=== PATIENT | male | born 1940 | race Caucasian/White ===

== ENCOUNTER 2018-10-28 09:26 | Inpatient (IN) | payer MEDICARE | END 2018-10-31 18:23 | LOC: EDH 09:26 → EDHIP 14:33 → 4CH 17:27 | DX: R41.0 Disorientation, unspecified (principal); J18.9 Pneumonia, unspecified organism; R33.9 Retention of urine, unspecified; G20 Parkinson's disease; I10 Essential (primary) hypertension ==

== ENCOUNTER 2018-11-02 00:46 | Emergency (ER) | payer MEDICARE ==
[~2018-11-02 00:46] MED LIST: ASPI-555 PO; CARB-39 PO; CARB1TAB42 PO; DEXL60CA3 PO; DONE10TA43 PO; KRIL1CAP19 PO; LOSA50TA64 PO; MELA10TA2 PO; NAPR220T57 PO; QUET25TA PO
[2018-11-02 01:19] LABS: BASOPHILS % (AUTO) 0.4 % (0.0-5.0); EOSINOPHILS % (AUTO) 5.3 % (0.0-8.0); HEMATOCRIT 41.9 % (42-54); LYMPHOCYTES % (AUTO) 10.6 % (21.0-51.0); MEAN CORPUSCULAR HEMOGLOBIN 32.3 pg (27.0-33.0); MEAN CORPUSCULAR HGB CONC 34.7 g/dL (32.0-36.0); MEAN CORPUSCULAR VOLUME 93.3 fL (79-99); MONOCYTES % (AUTO) 9.7 % (3.0-13.0); NUCLEATED RED BLOOD CELLS 0.1 % (0.0-0.19); PLATELET COUNT (AUTO) 216 K/uL (130-400); RED BLOOD CELL COUNT(AUTO) 4.49 MIL/uL (4.50-6.20); RED CELL DISTRIBUTION WIDTH 13.5 % (11.0-15.5); WHITE BLOOD COUNT (AUTO) 6.7 K/uL (4.8-10.8)
[2018-11-02 01:58] LABS: CREATININE 0.9 mg/dL (0.5-1.5); POTASSIUM 3.7 mmol/L (3.5-5.1)
== END 2018-11-02 03:47 | disposition home or self-care (01) ==
LOC: EDH 00:46
DX: S00.03XA Contusion of scalp, initial encounter (principal); F03.90 Unspecified dementia, unspecified severity, without behavioral disturbance, psychotic disturbance, mood disturbance, and anxiety; G20 Parkinson's disease; F02.80 Dementia in other diseases classified elsewhere, unspecified severity, without behavioral disturbance, psychotic disturbance, mood disturbance, and anxiety; E78.5 Hyperlipidemia, unspecified; Z90.49 Acquired absence of other specified parts of digestive tract; Z98.890 Other specified postprocedural states; Z88.8 Allergy status to other drugs, medicaments and biological substances; W18.39XA Other fall on same level, initial encounter; Y93.89 Activity, other specified; Y92.128 Other place in nursing home as the place of occurrence of the external cause; Y99.8 Other external cause status
CPT/HCPCS: 36415; 70450; 71045; 72125; 72170; 80048; 85025; 93005

== ENCOUNTER 2018-11-02 19:39 | Inpatient (IN) | payer MEDICARE ==
[~2018-11-02] VITALS: Ht 167.6 cm; Wt 85.5 kg
[2018-11-03] VITALS (27 sets, daily range): BP systolic 82–142; BP diastolic 40–85
[2018-11-03] MEDS ORDERED: LEVOFLOXACIN 500 MG TABLET ONE (00:22)
[2018-11-03] MEDS ORDERED: SODIUM CHLORIDE 0.9% 1000ML 1,000 ML IV ONE ×2 (02:22→10:18)
[2018-11-03] MEDS ORDERED: ACETAMINOPHEN 325 MG TAB ONE (02:35)
[2018-11-03 03:01] LABS: BILIRUBIN,URINE Negative (NEGATIVE); GLUCOSE, URINE (UA) Negative (NEGATIVE); KETONES,URINE Negative (NEGATIVE); LEUKOCYTE ESTERASE ,URINE Trace (NEGATIVE); NITRATE,URINE Negative (NEGATIVE); OCCULT BLOOD,URINE Large (NEGATIVE); PH,URINE 7.5 (5.0-8.0); PROTEIN,URINE >=1000 (NEGATIVE); UROBILINOGEN,URINE 0.2 mg/dL (0.2-1.0)
[2018-11-03 03:02] LABS: APPEARANCE,URINE BLOODY (CLEAR); COLOR,URINE RED (YELLOW)
[2018-11-03 03:14] LABS: BACTERIA,URINE Moderate /HPF (None Seen); MUCUS,URINE None Seen LPF (None Seen); RBC,URINE TNTC /HPF (0-1); SQUAMOUS EPITHELIAL CELL,UR None Seen /HPF (0-2)
[2018-11-03 04:22] LABS: BASOPHILS % (AUTO) 0.1 % (0.0-5.0); EOSINOPHILS % (AUTO) 0.8 % (0.0-8.0); HEMATOCRIT 39.1 % (42-54); LYMPHOCYTES % (AUTO) 4.7 % (21.0-51.0); MEAN CORPUSCULAR HEMOGLOBIN 31.7 pg (27.0-33.0); MEAN CORPUSCULAR HGB CONC 34.4 g/dL (32.0-36.0); MEAN CORPUSCULAR VOLUME 92.4 fL (79-99); MONOCYTES % (AUTO) 8.3 % (3.0-13.0); NEUTROPHILS % (AUTO) 86.1 % (40.0-77.0); PLATELET COUNT (AUTO) 233 K/uL (130-400); RED BLOOD CELL COUNT(AUTO) 4.23 MIL/uL (4.50-6.20); RED CELL DISTRIBUTION WIDTH 13.2 % (11.0-15.5); WHITE BLOOD COUNT (AUTO) 13.1 K/uL (4.8-10.8)
[2018-11-03 04:37] LABS: CREATININE 0.9 mg/dL (0.5-1.5); POTASSIUM 3.7 mmol/L (3.5-5.1)
[2018-11-03 04:42] LABS: ALBUMIN 3.2 g/dL (3.5-5.0); BILIRUBIN,TOTAL 1.2 mg/dL (0.2-1.0)
[2018-11-03] MEDS: SODIUM CHLORIDE 0.9% 1000ML 1,000 ML IV SCH ×2 (08:46→21:45)
[2018-11-03] MEDS ORDERED: NON-FORMULARY MEDICATION 1 EACH (Dexlansoprazole (Dexilant) 60 MG) PO PRN (09:00)
[2018-11-03] MEDS ORDERED: FAMOTIDINE/PF 20 MG/2 ML VIAL IV SCH (09:00)
[2018-11-03] MEDS ORDERED: MORPHINE SULFATE 2 MG/ML 1ML SYG IV PRN (09:00)
[2018-11-03] MEDS: MEROPENEM 1 GM VIAL IVP SCH (10:00)
[2018-11-03] MEDS ORDERED: FAMOTIDINE/PF 20 MG/2 ML VIAL IV ONE (10:18)
[2018-11-03 10:42] LABS: HEMATOCRIT 40.5 % (42-54)
[2018-11-03] MEDS ORDERED: MORPHINE SULFATE 2 MG/ML 1ML SYG ONE (11:56)
[2018-11-03] MEDS ORDERED: LOSARTAN 50 MG TABLET ONE (11:56)
[2018-11-03] MEDS: LOSARTAN 50 MG TABLET PO SCH (12:00)
[2018-11-03] MEDS: CARBIDOPA PO SCH ×2 (13:00→21:00)
[2018-11-03] MEDS: LEVODOPA PO SCH ×2 (13:00→21:00)
--- NOTE | 2018-11-03 19:30 | NUR ---
Patient laying in bed. Morales catheter in place. Draining bright red blood, unable to flush by day nurse. Patient speech is garbled incomprehensible. Unable to answer name, , or place. Dr Barrientos at bedside. Removed morales. Attempted to insert a morales catheter x2. Unsuccessful attempt. Orders for cystoscopy placed STAT. Consent signed by .
[2018-11-03] MEDS ORDERED: GENTAMICIN 80 MG/NS 100 ML PB 100 ML IV ONE (20:26)
[2018-11-03] MEDS ORDERED: DEXAMETHASONE SOD PHOSPHATE 10MG/ML 1ML VIAL ONE (20:34)
[2018-11-03] MEDS ORDERED: LIDOCAINE PF 2% 5ML ABBOJECT ONE (20:34)
[2018-11-03] MEDS ORDERED: MIDAZOLAM HCL 1 MG/ML 2ML VIAL ONE (20:34)
[2018-11-03] MEDS ORDERED: ONDANSETRON HCL 4 MG/2 ML VIAL ONE (20:35)
[2018-11-03] MEDS ORDERED: PROPOFOL 10 MG/ML 20ML VIAL IV ONE (20:35)
[2018-11-03] MEDS ORDERED: FENTANYL CITRATE PF 50 MCG/1 ML 2ML VIAL ONE (20:35)
[2018-11-03] MEDS: DONEPEZIL HCL 5 MG TAB PO SCH (21:00)
[2018-11-03] MEDS ORDERED: CARBIDOPA/LEVODOPA ER 50-200 1 EACH TABLET.ER PO SCH (21:00)
[2018-11-03] MEDS: QUETIAPINE FUMARATE 25 MG TAB PO SCH (21:00)
[2018-11-03] MEDS ORDERED: EPHEDRINE SULFATE 50 MG/ML AMPULE ONE (21:21)
--- NOTE | 2018-11-03 23:00 | NUR ---
Patient returned from procedure. [address]F [address] catheter in place with continuos bladder irrigation. Bladder non distended. Morales draining pale yellow urine. Orders to stop CBI in am. NS running. IV patent, running smoothly. Patient awake and alert.
[2018-11-04] VITALS (11 sets, daily range): BP systolic 101–141; BP diastolic 53–83
[2018-11-04] MEDS: MEROPENEM 1 GM VIAL IVP SCH ×3 (02:06→21:21)
[2018-11-04 04:29] LABS: HEMATOCRIT 34.5 % (42-54); MEAN CORPUSCULAR HEMOGLOBIN 31.3 pg (27.0-33.0); MEAN CORPUSCULAR HGB CONC 33.3 g/dL (32.0-36.0); MEAN CORPUSCULAR VOLUME 94.1 fL (79-99); PLATELET COUNT (AUTO) 268 K/uL (130-400); RED BLOOD CELL COUNT(AUTO) 3.67 MIL/uL (4.50-6.20); RED CELL DISTRIBUTION WIDTH 13.5 % (11.0-15.5); WHITE BLOOD COUNT (AUTO) 24.5 K/uL (4.8-10.8)
[2018-11-04 04:36] LABS: INR 1.07 (0.85-1.15); PROTHROMBIN TIME 11.2 SEC (9.6-11.6)
[2018-11-04 04:42] LABS: BILIRUBIN,TOTAL 0.9 mg/dL (0.2-1.0); CREATININE 1.1 mg/dL (0.5-1.5); POTASSIUM 4.5 mmol/L (3.5-5.1); TOTAL PROTEIN, SERUM 6.6 g/dL (6.0-8.3)
--- NOTE | 2018-11-04 06:30 | NUR ---
Bloody discharge from penis. CBI, stopped.
[2018-11-04] MEDS: FAMOTIDINE/PF 20 MG/2 ML VIAL IV SCH (08:41)
--- NOTE | 2018-11-04 08:45 | NUR ---
AM ASSESSMENT PT LAYING IN BED, HOB ELEVATED 30 DEGREES, RESTING. RESPONDS TO NAME ONLY. CONFUSED PHRASES. HX OF DEMENTIA. NO SOB. NO DISTRESS NOTED. O2 NC @ 2L. NO N/V AND/OR DIARRHEA. NPO STATUS. 0.9% NACL INFUSING @ 70 ML/HR. [address] PATENT & DRAINING. CBI DC'D THIS MORNING. BEDREST. SIDE RAILS UP X 4. BED FALL ALARM ON. CALL HERNAN W/IN REACH.
[2018-11-04] MEDS: EPA PO SCH (09:00)
[2018-11-04] MEDS: KRILL PO SCH (09:00)
[2018-11-04] MEDS: [UNRECOGNIZED DRUG - OTHER] PO SCH (09:00)
[2018-11-04] MEDS: PHOSPHO PO SCH (09:00)
[2018-11-04] MEDS: DHA PO SCH (09:00)
[2018-11-04] MEDS: AST PO SCH (09:00)
[2018-11-04] MEDS: LOSARTAN 50 MG TABLET PO SCH (12:00)
--- NOTE | 2018-11-04 12:51 | NUR ---
EVALUATION NOT COMPLETED SECONDARY TO Pt'S POOR ALERTNESS. LOBBY CONCIERGE PROVIDED VERBAL AND TACTILE CUES TO AROUSE Pt. Pt WITH EYES OPEN AND FIXED TO CEILING. Pt DID NOT RESPOND TO NAME OR TACTILE CUES. Pt DID NOT FOLLOW COMMANDS. LOBBY CONCIERGE PROVIDED TACTILE CUES TO MOUTH WITH SPOON TO ATTEMPT EVALUATION. PT DID NOT PARTICIPATE. NURSE RYAN NOTIFIED OF Pt'S POOR PARTICIPATION. NO FOOD OR LIQUIDS WERE PROVIDED AT THIS TIME. RECOMMEND NPO UNTIL BEDSIDE EVALUATION Pt IS AT HIGH RISK FOR ASPIRATION. WAS NOT AT BEDSIDE AT THE TIME OF THE EVALUATION. LOBBY CONCIERGE WILL CONTINUE TO FOLLOW Pt. Addendum: 11/04/18 at 1254 by PARAG ORTIZ [facility] Amended: Links added.
[2018-11-04] MEDS ORDERED: CARBIDOPA-LEVODOPA 25-100 TAB NG SCH (13:33)
[2018-11-04] MEDS: ROPINIROLE HCL 0.25 MG TABLET NG SCH ×2 (14:12→21:21)
--- NOTE | 2018-11-04 14:30 | NUR ---
ND TUBE INSERTION 14 FR NG TUBE INSERTED RT NARE. NO RESISTANCE @ INSERTION. PLACEMENT VERIFIED, AIR BOLUS. NG TUBE TAPED. MEDS @ GIVEN @ THIS TIME. NG TUBE CLAMPED.
[2018-11-04] MEDS: CARBIDOPA-LEVODOPA 25-100 TAB NG SCH ×2 (14:43→17:37)
--- NOTE | 2018-11-04 15:42 | NUR ---
DC Plan Discussed dcp with patient's Sharmin. Patient currently out of room for radiology exam. states patient comes from [facility] in [place], but looking for [facility] bed placement and would prefer to [place]. Patient currently w/ a NGT. CM to discuss plan w/ PMD. CD Addendum: 11/04/18 at 1544 by BERTA MALONEY CM Amended: Links added.
--- NOTE | 2018-11-04 17:33 | NUR ---
TRANSFER REPORT GIVEN SHELDON SANTA RN.
--- NOTE | 2018-11-04 17:45 | NUR ---
ASSUMED CARE AFTER RECEIVING REPORT AND PATIENT TRANSFERRED TO ROOM 420, ALERT X 1 , IV INFUSING VIA 24 G IN RIGHT HAND , LOBATO 3 WAY 16 FR DRAINING CLEAR URINE, NG TUBE ( INSERTED FOR MEDICATIONS0 SERCURED AND TAPED TO NOSE PLACEMENT CHECK, O2 @ 2 LITER NC INFUSING . FAMILY AT BEDSIDE.
--- NOTE | 2018-11-04 17:50 | NUR ---
TRANSFER PT TRANSFERRED TO RM 420 VIA BED. @ BEDSIDE. TELE MARSHALL REMOVED EARLIER. TOLERATED TRANSFER WELL. NO DISTRESS NOTED.
[2018-11-04] MEDS: ACETAMINOPHEN 325 MG TAB PO PRN (18:27)
[2018-11-04] MEDS: DONEPEZIL HCL 5 MG TAB PO SCH (20:15)
[2018-11-04] MEDS: SODIUM CHLORIDE 0.9% 1000ML 1,000 ML IV SCH ×2 (20:16→22:46)
[2018-11-04] MEDS: QUETIAPINE FUMARATE 25 MG TAB PO SCH (20:16)
--- NOTE | 2018-11-04 22:30 | NUR ---
ngt ngt pulled by patient, restart ngt via right nare with 14 panamanian catheter , positive with placement in the stomach by 2 nurses, adarsh garcia r.n and shazia oates,apply mittens to patient to avoid pulling ngt,
[2018-11-05] MEDS: CARBIDOPA-LEVODOPA 25-100 TAB NG SCH ×4 (00:38→19:47)
[2018-11-05 03:31] VITALS: BP 113/72
[2018-11-05 04:21] LABS: HEMATOCRIT 28.9 % (42-54); MEAN CORPUSCULAR HGB CONC 34.1 g/dL (32.0-36.0); MEAN CORPUSCULAR VOLUME 93.9 fL (79-99); PLATELET COUNT (AUTO) 184 K/uL (130-400); RED BLOOD CELL COUNT(AUTO) 3.07 MIL/uL (4.50-6.20); RED CELL DISTRIBUTION WIDTH 13.6 % (11.0-15.5); WHITE BLOOD COUNT (AUTO) 12.8 K/uL (4.8-10.8)
[2018-11-05 04:32] LABS: CREATININE 0.9 mg/dL (0.5-1.5); PHOSPHORUS 2.4 mg/dL (2.5-4.9); POTASSIUM 3.9 mmol/L (3.5-5.1)
[2018-11-05] MEDS: ROPINIROLE HCL 0.25 MG TABLET NG SCH ×3 (05:30→20:59)
[2018-11-05] MEDS: MEROPENEM 1 GM VIAL IVP SCH ×3 (05:30→20:59)
[2018-11-05 07:41] VITALS: BP 147/79
[2018-11-05] MEDS: KRILL PO SCH (09:00)
[2018-11-05] MEDS: DHA PO SCH (09:00)
[2018-11-05] MEDS: PHOSPHO PO SCH (09:00)
[2018-11-05] MEDS: EPA PO SCH (09:00)
[2018-11-05] MEDS: AST PO SCH (09:00)
[2018-11-05] MEDS: [UNRECOGNIZED DRUG - OTHER] PO SCH (09:00)
[2018-11-05] MEDS: FAMOTIDINE/PF 20 MG/2 ML VIAL IV SCH (09:40)
--- NOTE | 2018-11-05 11:22 | NUR ---
DYSPHAGIA EVAL COMPLETED. +S/S OF ASPIRATION WITH THIN LIQUIDS. RECOMMEND REGULAR SOLIDS, NECTAR-THICK LIQUIDS; PILLS WHOLE WITH LIQUIDS. REFUSED BY Pt AND . PATIENT INFORMATION: Pt IS A 77 YEAR OLD MALE REFERRED FOR A BEDSIDE DYSPHAGIA EVAL SECONDARY TO DYSPHAGIA. Pt WITH AT BEDSIDE AT THIS TIME. REPORTS Pt HAS A HISTORY OF DYSPHAGIA AND DOES NOT LIKE THE THICKENER; HE DOES NOT THICKEN LIQUIDS IN THE HOME. PT WITH NG TUBE IN PLACE AT THE TIME OF THE EVALUATION. Pt CURRENTLY ADMITTED SECONDARY TO METABOLIC ENCEPHALOPATHY, TRAUMATIC HEMATURIA, AND SEPSIS. 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 EVALUATION: MODERATE PHARYNGEAL DYSPHAGIA CAUSED BY DECREASED TONGUE BASE RETRACTION, DELAYED PHARYNGEAL RESPONSE TIME, DECREASED LARYNGEAL ELEVATION/EXCURSION, EVIDENCED BY MULTIPLE SWALLOWS AND +S/S OF ASPIRATION OF SUPER COUGH RESPONSE WITH THIN LIQUIDS. NO S/S OF ASPIRATION NOTED WITH NECTAR-THICK LIQUIDS. RECOMMENDATIONS: 1. REGULAR SOLIDS, NECTAR-THICK LIQUIDS; PILLS WHOLE WITH LIQUIDS. 2. COMPENSATORY STRATEGIES: *SEATED AT 90 DEGREES *SLOW RATE *SMALL BITES AND SIPS GEAR LAPPER EDUCATED Pt AND ON RISKS AND CONSEQUENCES OF ASPIRATION INCLUDING: ASPIRATION PNEUMONIA, DRUG RESISTANT PNEUMONIA AND POTENTIALLY COMPLICATIONS THAT CAN BE FATAL. THEY VERBALIZED UNDERSTANDING ON RISKS AND VERBALIZED THAT THEY DID NOT WANT TO USE THE THICKENER. NURSE SHELDON WAS NOTIFIED. REFUSAL OF CARE FILLED OUT AND SIGNED BY . G-CODES SWALLOWING. [id number] Addendum: 11/05/18 at 1126 by PARAG ORTIZ [facility] Amended: Links added.
[2018-11-05 11:29] VITALS: BP 152/76
[2018-11-05] MEDS: LOSARTAN 50 MG TABLET PO SCH (12:46)
--- NOTE | 2018-11-05 12:53 | NUR ---
RD Notification Patient with metabolic encephalopathy and accidental removal of Peña Cath. RD Notification for Tube Feed Recommendations. Tube Feeding recommendations placed in patient chart. Patient seen by GEOSPATIAL DEVELOPER this AM and Rec Regular diet with [place]-thick liquids, however nectar thickened liquids refused by Patient and as per EMR. Patient diet advanced to Regular. Patient LBM 11/03/18. Healthy BMI for age. Patient monitored labs: BUN 24, Glu 119, Ca 8.4, P 2.4, Alb 3.0. RD to continue to monitor. Please notify RD as nutritional concerns arise. Thank you. Addendum: 11/05/18 at [address] Amended: Links added.
--- NOTE | 2018-11-05 13:14 | NUR ---
DR DO IN TO SEE PATIENT REINSTATED THAT LOBATO WAS TO STAY IN PLACE FOR 7 DAYS FROM INSERTION ( INSERTED ON 11/03/18) .
--- NOTE | 2018-11-05 16:00 | NUR ---
TO GM SAID PULLED OUT NG TUBE. PATIENT NOW ON REG DIET WILL GIVE MEDICATIONS IN APPLESAUCE INFORMED HASEEB OF NG STATUS
[2018-11-05 16:24] VITALS: BP 140/62
[2018-11-05] MEDS: SODIUM CHLORIDE 0.9% 1000ML 1,000 ML IV SCH (19:47)
[2018-11-05] MEDS: QUETIAPINE FUMARATE 25 MG TAB PO SCH (19:47)
[2018-11-05] MEDS: DONEPEZIL HCL 5 MG TAB PO SCH (19:47)
[2018-11-05 19:50] VITALS: BP 115/70
[2018-11-06] VITALS: BP 135/74
[2018-11-06] MEDS: CARBIDOPA-LEVODOPA 25-100 TAB NG SCH ×5 (00:05→23:49)
[2018-11-06 03:41] VITALS: BP 155/88
[2018-11-06 04:31] LABS: BASOPHILS % (AUTO) 0.4 % (0.0-5.0); EOSINOPHILS % (AUTO) 2.4 % (0.0-8.0); HEMATOCRIT 28.4 % (42-54); LYMPHOCYTES % (AUTO) 12.6 % (21.0-51.0); MEAN CORPUSCULAR HEMOGLOBIN 31.7 pg (27.0-33.0); MEAN CORPUSCULAR HGB CONC 33.8 g/dL (32.0-36.0); MEAN CORPUSCULAR VOLUME 93.7 fL (79-99); MONOCYTES % (AUTO) 8.4 % (3.0-13.0); NEUTROPHILS % (AUTO) 76.2 % (40.0-77.0); PLATELET COUNT (AUTO) 203 K/uL (130-400); RED BLOOD CELL COUNT(AUTO) 3.03 MIL/uL (4.50-6.20); RED CELL DISTRIBUTION WIDTH 13.3 % (11.0-15.5); WHITE BLOOD COUNT (AUTO) 8.2 K/uL (4.8-10.8)
[2018-11-06 04:42] LABS: CREATININE 0.8 mg/dL (0.5-1.5); POTASSIUM 3.6 mmol/L (3.5-5.1)
[2018-11-06] MEDS: SODIUM CHLORIDE 0.9% 1000ML 1,000 ML IV SCH ×2 (05:09→20:15)
[2018-11-06] MEDS: ROPINIROLE HCL 1 MG TABLET NG SCH ×3 (05:09→21:56)
[2018-11-06] MEDS: MEROPENEM 1 GM VIAL IVP SCH ×3 (05:09→21:55)
[2018-11-06 08:00] VITALS: BP 143/68
[2018-11-06] MEDS: [UNRECOGNIZED DRUG - OTHER] PO SCH (09:00)
[2018-11-06] MEDS: EPA PO SCH (09:00)
[2018-11-06] MEDS: DHA PO SCH (09:00)
[2018-11-06] MEDS: PHOSPHO PO SCH (09:00)
[2018-11-06] MEDS: AST PO SCH (09:00)
[2018-11-06] MEDS: KRILL PO SCH (09:00)
[2018-11-06] MEDS: FAMOTIDINE/PF 20 MG/2 ML VIAL IV SCH (11:09)
[2018-11-06 12:00] VITALS: BP 148/80
[2018-11-06] MEDS: LOSARTAN 50 MG TABLET PO SCH (12:07)
--- NOTE | 2018-11-06 14:11 | NUR ---
CM Note: [facility] pending acceptance CM spoke to [facility], received clinicals, pasrr and order. Will come eval pt. Aware pt was at [facility] prior to admission, but spouse would like pt to transfer in [place] as it is too far for her to commute daily. Pt pending acceptance. EMS filled out, flagged in chart, pending to be faxed once pt ready. Primary nurse aware. CM to cont to follow up.
[2018-11-06 16:00] VITALS: BP 147/78
[2018-11-06 19:55] VITALS: BP 145/65
[2018-11-06] MEDS: QUETIAPINE FUMARATE 25 MG TAB PO SCH (20:16)
[2018-11-06] MEDS: DONEPEZIL HCL 5 MG TAB PO SCH (20:16)
[2018-11-06] MEDS: ACETAMINOPHEN 325 MG TAB PO PRN (23:49)
[2018-11-07] VITALS (7 sets, daily range): BP systolic 121–177; BP diastolic 56–84
[2018-11-07 04:23] LABS: BASOPHILS % (AUTO) 0.4 % (0.0-5.0); EOSINOPHILS % (AUTO) 3.8 % (0.0-8.0); MEAN CORPUSCULAR HEMOGLOBIN 32.3 pg (27.0-33.0); MEAN CORPUSCULAR HGB CONC 34.5 g/dL (32.0-36.0); MEAN CORPUSCULAR VOLUME 93.7 fL (79-99); MONOCYTES % (AUTO) 10.3 % (3.0-13.0); NEUTROPHILS % (AUTO) 71.5 % (40.0-77.0); PLATELET COUNT (AUTO) 193 K/uL (130-400); RED BLOOD CELL COUNT(AUTO) 2.77 MIL/uL (4.50-6.20); RED CELL DISTRIBUTION WIDTH 13.3 % (11.0-15.5); WHITE BLOOD COUNT (AUTO) 6.7 K/uL (4.8-10.8)
[2018-11-07 04:30] LABS: CREATININE 0.8 mg/dL (0.5-1.5); POTASSIUM 3.7 mmol/L (3.5-5.1)
[2018-11-07] MEDS: CARBIDOPA-LEVODOPA 25-100 TAB NG SCH ×3 (06:08→23:59)
[2018-11-07] MEDS: ROPINIROLE HCL 1 MG TABLET NG SCH ×3 (06:08→21:52)
[2018-11-07] MEDS: MEROPENEM 1 GM VIAL IVP SCH ×3 (06:08→21:52)
[2018-11-07] MEDS: DHA PO SCH (09:00)
[2018-11-07] MEDS: EPA PO SCH (09:00)
[2018-11-07] MEDS: AST PO SCH (09:00)
[2018-11-07] MEDS: PHOSPHO PO SCH (09:00)
[2018-11-07] MEDS: [UNRECOGNIZED DRUG - OTHER] PO SCH (09:00)
[2018-11-07] MEDS: KRILL PO SCH (09:00)
[2018-11-07] MEDS: FAMOTIDINE/PF 20 MG/2 ML VIAL IV SCH (09:40)
[2018-11-07] MEDS: LOSARTAN 50 MG TABLET PO SCH (12:34)
--- NOTE | 2018-11-07 14:31 | NUR ---
cm note received call from rep obando at [facility] and states pt not accepted to [facility]. spoke to pt's spouse and updated on this, states does not wish to go to [facility], informed choice letter states [facility] or [facility], pt agreeable to referral to these facilities. faxed clinical to [facility],pending evaluation. spoke to Arline chatman at [facility] and [facility], and informed her that amenable to either facility.
[2018-11-07] MEDS: ACETAMINOPHEN 325 MG TAB PO PRN (17:19)
[2018-11-07] MEDS: QUETIAPINE FUMARATE 25 MG TAB PO SCH (20:14)
[2018-11-07] MEDS: DONEPEZIL HCL 5 MG TAB PO SCH (20:14)
[2018-11-07] MEDS: SODIUM CHLORIDE 0.9% 1000ML 1,000 ML IV SCH (20:14)
[2018-11-08] MEDS: SODIUM CHLORIDE 0.9% 1000ML 1,000 ML IV SCH ×2 (02:55→16:06)
[2018-11-08 04:00] VITALS: BP 160/83
[2018-11-08] MEDS: MEROPENEM 1 GM VIAL IVP SCH ×3 (05:20→22:35)
[2018-11-08] MEDS: CARBIDOPA-LEVODOPA 25-100 TAB NG SCH ×3 (05:20→17:14)
[2018-11-08] MEDS: ROPINIROLE HCL 1 MG TABLET NG SCH ×3 (05:20→21:07)
[2018-11-08 08:44] VITALS: BP 133/76
[2018-11-08] MEDS: AST PO SCH (09:00)
[2018-11-08] MEDS: DHA PO SCH (09:00)
[2018-11-08] MEDS: KRILL PO SCH (09:00)
[2018-11-08] MEDS: [UNRECOGNIZED DRUG - OTHER] PO SCH (09:00)
[2018-11-08] MEDS: EPA PO SCH (09:00)
[2018-11-08] MEDS: PHOSPHO PO SCH (09:00)
[2018-11-08] MEDS: FAMOTIDINE/PF 20 MG/2 ML VIAL IV SCH (09:28)
--- NOTE | 2018-11-08 11:00 | NUR ---
cm note spoke to nick with [facility], and states she will not be able to accept today, needs to verify the , will let cm know friday. also , that per family now wanting [facility].
[2018-11-08] MEDS: LOSARTAN 50 MG TABLET PO SCH (12:07)
[2018-11-08 12:29] VITALS: BP 176/86
[2018-11-08 16:47] VITALS: BP 165/80
[2018-11-08] MEDS ORDERED: COMPOUND IV REFRIGERATED 1 EACH IVSOLN MISC PRN (19:45)
[2018-11-08 20:07] LABS: % IRON SATURATION 8.6 % (30-44)
[2018-11-08 20:30] VITALS: BP 146/93
[2018-11-08] MEDS: IRON SUCROSE COMPLEX 100 MG in SODIUM CHLORIDE 0.9% 50 ML IV SCH (21:02)
[2018-11-08] MEDS: METOPROLOL TARTRATE 25 MG TAB PO SCH (21:06)
[2018-11-08] MEDS: EPOETIN ALFA 10,000 UNIT/ML VIAL SQ SCH (21:06)
[2018-11-08] MEDS: DONEPEZIL HCL 5 MG TAB PO SCH (21:06)
[2018-11-08] MEDS: QUETIAPINE FUMARATE 25 MG TAB PO SCH (21:07)
[2018-11-09 00:07] VITALS: BP 115/62
[2018-11-09] MEDS: CARBIDOPA-LEVODOPA 25-100 TAB NG SCH ×4 (01:51→18:26)
[2018-11-09 04:19] VITALS: BP 114/63
[2018-11-09] MEDS: MEROPENEM 1 GM VIAL IVP SCH ×3 (07:23→21:26)
[2018-11-09] MEDS: ROPINIROLE HCL 1 MG TABLET NG SCH ×3 (07:23→21:27)
[2018-11-09 07:30] VITALS: BP 139/64
[2018-11-09] MEDS: PHOSPHO PO SCH (09:00)
[2018-11-09] MEDS: EPA PO SCH (09:00)
[2018-11-09] MEDS: DHA PO SCH (09:00)
[2018-11-09] MEDS: AST PO SCH (09:00)
[2018-11-09] MEDS: KRILL PO SCH (09:00)
[2018-11-09] MEDS: [UNRECOGNIZED DRUG - OTHER] PO SCH (09:00)
[2018-11-09] MEDS: FAMOTIDINE/PF 20 MG/2 ML VIAL IV SCH (09:42)
[2018-11-09] MEDS: METOPROLOL TARTRATE 25 MG TAB PO SCH ×2 (09:42→21:26)
[2018-11-09] MEDS: SODIUM CHLORIDE 0.9% 1000ML 1,000 ML IV SCH (09:46)
[2018-11-09 11:00] VITALS: BP 128/64
[2018-11-09] MEDS: IRON SUCROSE COMPLEX 100 MG in SODIUM CHLORIDE 0.9% 50 ML IV SCH (11:48)
[2018-11-09] MEDS: LOSARTAN 50 MG TABLET PO SCH (11:52)
[2018-11-09] MEDS ORDERED: COMPOUND IV MISC 1 EACH IVSOLN MISC PRN (12:15)
[2018-11-09 16:00] VITALS: BP 158/76
[2018-11-09] MEDS: EPOETIN ALFA 10,000 UNIT/ML VIAL SQ SCH (18:15)
[2018-11-09 20:35] VITALS: BP 142/70
[2018-11-09] MEDS: QUETIAPINE FUMARATE 25 MG TAB PO SCH (21:26)
[2018-11-09] MEDS: DONEPEZIL HCL 5 MG TAB PO SCH (21:26)
[2018-11-10] MEDS: SODIUM CHLORIDE 0.9% 1000ML 1,000 ML IV SCH ×2 (00:30→14:41)
[2018-11-10] MEDS: CARBIDOPA-LEVODOPA 25-100 TAB NG SCH ×4 (00:30→18:11)
[2018-11-10 01:08] VITALS: BP 132/70
[2018-11-10 04:33] VITALS: BP 126/66
[2018-11-10] MEDS: ROPINIROLE HCL 1 MG TABLET NG SCH ×2 (06:14→14:41)
[2018-11-10] MEDS: MEROPENEM 1 GM VIAL IVP SCH (06:14)
[2018-11-10 08:00] VITALS: BP 145/66
[2018-11-10] MEDS: KRILL PO SCH (09:00)
[2018-11-10] MEDS: PHOSPHO PO SCH (09:00)
[2018-11-10] MEDS: AST PO SCH (09:00)
[2018-11-10] MEDS: EPA PO SCH (09:00)
[2018-11-10] MEDS: DHA PO SCH (09:00)
[2018-11-10] MEDS: [UNRECOGNIZED DRUG - OTHER] PO SCH (09:00)
[2018-11-10] MEDS: FAMOTIDINE/PF 20 MG/2 ML VIAL IV SCH (09:43)
[2018-11-10] MEDS: METOPROLOL TARTRATE 25 MG TAB PO SCH (09:43)
[2018-11-10 12:00] VITALS: BP 160/71
[2018-11-10] MEDS: LOSARTAN 50 MG TABLET PO SCH (12:00)
--- NOTE | 2018-11-10 14:30 | NUR ---
CALLED DR DO OFFICE ORDERERS FOR REMOVAL OF LOBATO CATHETER AND FOLLOW -UP APPOINTMENT WITH DR DO NEXT FridayNovember AT 1330
[2018-11-10] MEDS: ACETAMINOPHEN 325 MG TAB PO PRN (14:40)
--- NOTE | 2018-11-10 15:15 | NUR ---
LOBATO CATHETER REMOVED WITH 650 CC YELLOW URINE IN BAG , OLD BLOOD AROU NG PENIS CLEANED AND BRIEF PLACED ON PATIENT
[2018-11-10 16:00] VITALS: BP 129/56
--- NOTE | 2018-11-10 17:00 | NUR ---
REPORT ALBERTO TO NURSE MCDONALD AT [facility] REC SENT. PATIENT AND GIVEN DISCHARGE INSTRUCTIONS AND IV REMOVED AND SITE DRESSED. PATIENT AND INSTRUCTED ON FOLLOW-UP APPOINTMENT WITH DR DO ON THE November AT 1330/ 1:30pm AND ORDERS TO REMOVE LOBATO FROM DR AMARAL AND LOBATO WAS REMOVED. BRIEF PLACED ON PATIENT. AND EMS CALLED WAITING FOR EMS
[2018-11-10] MEDS: EPOETIN ALFA 10,000 UNIT/ML VIAL SQ SCH (17:48)
[2018-11-10 19:10] VITALS: BP 134/50
--- NOTE | 2018-11-10 19:44 | NUR ---
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
[2018-11-11] MEDS ORDERED: FERROUS SULFATE 325 MG TABLET.DR PO SCH (09:00)
== END 2018-11-10 19:40 | DRG 871 ==
LOC: EDH 19:39 → EDHIP 11-03 08:46 → 2AH 11-03 14:29 → 4CH 11-04 18:03
PROVIDERS: ADMIT Internal Medicine; ATTEND Internal Medicine
PROC: 0TCB8ZZ Extirpation of Matter from Bladder, Via Natural or Artificial Opening Endoscopic (ICD-10-PCS; principal; 2018-11-03 20:35)
DX: A41.9 Sepsis, unspecified organism (principal); G93.41 Metabolic encephalopathy; T83.83XA Hemorrhage due to genitourinary prosthetic devices, implants and grafts, initial encounter; S37.30XA Unspecified injury of urethra, initial encounter; I10 Essential (primary) hypertension; F02.80 Dementia in other diseases classified elsewhere, unspecified severity, without behavioral disturbance, psychotic disturbance, mood disturbance, and anxiety; G20 Parkinson's disease; K44.9 Diaphragmatic hernia without obstruction or gangrene; G47.00 Insomnia, unspecified; K57.90 Diverticulosis of intestine, part unspecified, without perforation or abscess without bleeding; N36.5 Urethral false passage; N36.8 Other specified disorders of urethra; N40.1 Benign prostatic hyperplasia with lower urinary tract symptoms; R33.8 Other retention of urine; Y83.8 Other surgical procedures as the cause of abnormal reaction of the patient, or of later complication, without mention of misadventure at the time of the procedure; Z96.611 Presence of right artificial shoulder joint; Y92.89 Other specified places as the place of occurrence of the external cause; Z85.828 Personal history of other malignant neoplasm of skin; Z88.8 Allergy status to other drugs, medicaments and biological substances; Z83.3 Family history of diabetes mellitus; Z80.9 Family history of malignant neoplasm, unspecified
CPT/HCPCS: 36415; 70450; 71045; 74176; 76775; 80048; 80053; 81001; 82948; 83540; 83550; 83605; 83735; 84100; 85014; 85018; 85025; 85027; 85610; 87040; 87088; 92610; 97039; A4218; A4344; A4354; C1769; G0378; J0885; J1100; J1580; J1756; J2001; J2185; J2250; J2405; J2704; J3010; J3490; J7030; J7120